=== PATIENT | male | born 1965 | race Caucasian/White ===

== ENCOUNTER 2016-12-21 04:59 | Observation (INO) | payer OTHER ==
[~2016-12-21] VITALS: Ht 182.9 cm; Wt 87.2 kg
[~2016-12-21 04:59] MED LIST: IBUPROFEN800 MG PO; PREDNISONE20 MG PO
[2016-12-21 05:43] LABS: HEMATOCRIT 44.8 % (38.0-50.0); MCH 29.8 PG (29.0-34.0); MCHC 33.7 G/DL (30.0-36.0); MCV 88.5 FL (86-99); MEAN PLAT.VOLUME 11.9 uM^3 (9.0-12.4); PLATELET COUNT 173 K/uL (156-360); RBC DIS.WIDTH-CV 12.7 % (11.8-14.6); RED BLOOD COUNT 5.06 M/uL (4.00-5.50); WHITE BLOOD COUNT 5.3 K/uL (4.1-10.2)
[2016-12-21 05:56] LABS: CHLORIDE 106 mEq/L (99-109); SODIUM 141 mEq/L (136-147)
[2016-12-21 05:57] LABS: GLUCOSE 87 mg/dL (70-99)
[2016-12-21 05:59] LABS: ANION GAP 9 MEQ/L (2-14)
[2016-12-21 06:01] LABS: GFR ESTIMATE (CALCULATED) > 59 mL/min/
[2016-12-21 06:02] LABS: UREA NITROGEN (BUN) 16 mg/dL (9-23)
[2016-12-21 06:05] LABS: TROP-I INTERPRETATION NEGATIVE; TROPONIN-I < 0.01 ng/mL (0.0-0.30)
[2016-12-21 10:07] VITALS: BP 94/58
[2016-12-21 10:10] LABS: D-DIMER ELISA 0.19 mg/L FEU (< 0.57)
[2016-12-21 10:33] LABS: Estimated Average Glucose 111 mg/dL (70-123); HEMOGLOBIN A1c (GLYCOHEMOGLOB) 5.5 % HGB (Below 5.7)
[2016-12-21 10:41] LABS: HDL CHOLESTEROL 42 MG/DL (Desirable>=40); LDL CHOLESTEROL 82 mg/dL (Desirable<100); NON-HDL CHOLESTEROL 97 mg/dL (Desirable<160); TOTAL CHOLESTEROL 139 mg/dL (Desirable<200); TRIGLYCERIDES 73 MG/DL (Normal: <150)
[2016-12-21 11:48] VITALS: BP 94/57
[2016-12-21 12:28] LABS: TROP-I INTERPRETATION NEGATIVE; TROPONIN-I < 0.01 ng/mL (0.0-0.30)
[2016-12-21] MEDS ORDERED: MAGNESIUM200 MG PO (15:30)
[2016-12-21] MEDS ORDERED: ALLERGY RELIEF180 MG PO (15:31)
[2016-12-21] MEDS ORDERED: NAPROXEN500 MG PO (15:31)
[2016-12-21] MEDS ORDERED: AZELASTINE137 MCG/0. BOTH NARES (15:32)
[2016-12-21] MEDS ORDERED: FLONASE16 G1 BOTH NARES (15:33)
[2016-12-21] MEDS ORDERED: IPRATROPIUM BRO15 ML BOTH NARES (15:33)
[2016-12-21] MEDS ORDERED: VITAMIN D32000 UNI1 PO (15:34)
[2016-12-21] MEDS ORDERED: LO-DOSE ASPIRIN81 M1 PO (15:35)
[2016-12-21] MEDS ORDERED: CIALIS10 MG PO (15:36)
[2016-12-21] MEDS ORDERED: MELOXICAM15 MG PO (15:37)
[2016-12-21] MEDS ORDERED: LIPITOR10 MG PO (15:37)
[2016-12-21 16:19] VITALS: BP 93/52
[2016-12-21 17:17] LABS: TROP-I INTERPRETATION NEGATIVE; TROPONIN-I < 0.01 ng/mL (0.0-0.30)
== END 2016-12-21 17:59 | disposition home or self-care (01) ==
LOC: EME 04:59 → EDOF 09:10 → 5WEST 09:58
PROVIDERS: Student in an Organized Health Care Education/Training Program
DX: R07.9 Chest pain, unspecified (principal); R00.2 Palpitations; I25.10 Atherosclerotic heart disease of native coronary artery without angina pectoris; E78.5 Hyperlipidemia, unspecified; R06.09 Other forms of dyspnea; I10 Essential (primary) hypertension; R11.0 Nausea; R42 Dizziness and giddiness; F32.9 Major depressive disorder, single episode, unspecified; Z88.5 Allergy status to narcotic agent
CPT/HCPCS: 71020; 80048; 80061; 83036; 84484; 85027; 85379; 93005; G0378